=== PATIENT | female | born 1955 | race Caucasian/White ===

== ENCOUNTER 2023-02-17 10:00 | Outpatient (RCR) | payer OTHER, SELFPAY ==
--- NOTE | 2023-01-29 14:16 | PT.OPEX ---
PT [place] [facility] PT [facility] Out[facility] Eval Start: 01/29/23 08:54 Freq: Status: Active Protocol: Document 01/29/23 11:02 NAVYA (Rec: 01/29/23 12:10 NAVYA [id number]) E-signed By Steven Gonzalez PT Physical Therapy Outpatient Evaluation Insurance Information Insurance Name [employer] Medical Diagnosis Left distal bicep strain Treating Diagnosis Left bicep/forearm pain Decreased left bicep strength Referring MD Noriega Subjective Subjective Pt. reports straining her left distal bicep during weight training exercises in October using light dumbbells. She initially had 8/10 pain in upper forearm at bicep insertion, but since seeing Ortho a month ago and resting it, her pain has reduced to a minimal level during normal ADL's. No prior injury or pain in this area. PMH includes; acid reflux and Osteoporosis. She is active with Yoga and exercises regularly. 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 demonstrates; normal bilateral shoulder AROM with 4+/5 strength throughout; normal bilateral elbow, forearm, and wrist AROM : mild rounded shoulders posture; mild weakness of left elbow flexion and forearm supination with minimal pain noted at distal bicep during resisted elbow flexion; mild pain and tightness/tissue restriction noted in left bicep insertion and proximal forearm area. She would benefit from skilled therapy working on progressive tissue elongation and strengthening/ reconditioning back to pre- injury level. Primary Functional Limitations lifting weights, lifting heavier objects, bicep curls. Plan of Care Rehabilitation Potential Excellent Physical Therapy Goals 1. Pt. will be indep. with HEP for self maintenance in 8 weeks. 2. Pt. will demonstrate improved left bicep/forearm strength to normal level in 8 weeks. 3. Pt. will be able to resume light weight lifting training without difficulty in 8 weeks. Coordination/Communication With Referral Source Treatment Plan/Direct Interventions Manual Therapy,Self-Care/Home Management,Therapeutic Exercises Frequency/Duration Weekly to every other week for 8 weeks. Patient Will Be Discharged From Therapy Independent w/HEP, Independently Progressing Evaluation Billing Complexity Low Certification Information Initial Certification Date 01/29/23 Ending Certification Date 04/24/23 Provider Signature Shows Agreement With POC & Medical Necessity Physician Signature & Date Requested Please Sign/Date Here Physician Comment/Change : Physician NPI Number #
== END 2023-06-17 23:59 | disposition home or self-care (01) ==
PROVIDERS: PCP Internal Medicine; Visit Provider Orthopaedic Surgery Sports Medicine
DX: S46.212A Strain of muscle, fascia and tendon of other parts of biceps, left arm, initial encounter (principal); R53.1 Weakness; Z51.89 Encounter for other specified aftercare
CPT/HCPCS: 97110; 97140; 97161

== ENCOUNTER 2023-07-27 08:51 | Outpatient (CLI) | payer MEDICARE, BC, SELFPAY | END 2023-07-27 08:52 | disposition home or self-care (01) | LOC: NFLDREF 11:15 | PROVIDERS: PCP Internal Medicine; Referring Provider Internal Medicine; Visit Provider Internal Medicine | DX: Z00.00 Encounter for general adult medical examination without abnormal findings (principal); Z13.6 Encounter for screening for cardiovascular disorders; Z13.9 Encounter for screening, unspecified; Z13.1 Encounter for screening for diabetes mellitus; M81.0 Age-related osteoporosis without current pathological fracture | CPT/HCPCS: 80061; 82306; 82947 ==

== ENCOUNTER 2023-10-09 10:45 | Outpatient (RCR) | payer MEDICARE, BC, SELFPAY ==
--- NOTE | 2023-08-04 13:26 | PT.OPEX ---
PT [place] Outpatient Eval PT [facility] Outpatient Eval Start: 07/10/23 08:58 Freq: Status: Active Protocol: Document 07/10/23 08:58 AMS (Rec: 07/10/23 12:54 AMS [id number]) E-signed By Rosa Aquino PT Physical Therapy Outpatient Evaluation Insurance Information Recert Due Date 10/03/22 Insurance Name Medicare B Insurance Information/Comments [facility] [employer] Medical Diagnosis Strain of right rotator cuff Treating Diagnosis Right shoulder pain Muscle weakness Referring MD Jeancarlos Noriega Subjective Subjective Yareli returns today with a new problem of right shoulder pain. She states she slipped going down the steps and caught her arm and it pulled behind her at the end of May. Her pain is sharp, intermittent and relieves with rest. The patient has tried ice, Tylenol/oral NSAIDs, rest , activity modification all with minimal and non-lasting relief. The pain is worse with sleeping intermittently. Her pain is of the lateral shoulder. - Dr. Noriega, , confirmed by patient Patient, right-hand dominant, presents with primary complaint of right shoulder pain. This started at the end of May after she slipped going down the steps, caught her arm, and it pulled behind her. She had X-rays done ( below), which were negative for fracture or other concerning bony abnormalities. No other history of injury to the shoulder. She localizes the pain to the lateral shoulder, extending across top of shoulder to base of right- sided neck. Denies numbness/ tingling or neck pain. Describes it as sharp/ intermittent with activity and sometimes has painless clicking. Reaching, lifting, sleeping on her left shoulder, hooking her bra, washing her back/putting on lotion, putting on her jacket, and performing shoulder extension with weight as exercise are aggravating/functional limitations. Her current exercise program is [employer] with [employer] that she finds on YouTube 5x/week, and it varies day to day. Usually, it will be upper body free weights one day, walking one day, lower body on 2 other days, etc. Prior to injury, she was using 3 lb, 5 lb and 8 lb dumbbells for upper body lifting in her classes online. Now, she uses only 1 lb and will sometimes have increased pain the day after doing her modified routine. Easing factors include ibuprofen and ice in beginning. Goals are to return to pain-free sleep and weightlifting routine as well as yoga classes. She has access to the gym now, including yoga classes, but hasn't used it yet due to being unsure of how much to do with her shoulder pain. X-ray dated 06/26/23: Grashey , Y-view and Axillary views of the right shoulder were obtained today from [facility], were ordered and reviewed by me, and show mild superior humeral head migration. Otherwise, no acute fractures, avulsions, or intraosseous pathology. No signs of AVN. -Dr. 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 Preferred Name Yareli Beebe Precautions Treatment Precautions/Contraindications Osteoporosis, bronchiectasis ( treated via medication for lung infection) Objective Other/Pertinent Objective CERVICAL AROM Full and pain-free SHOULDER AROM Flexion: R 170*, L 170 Abduction: R 170*, L 170 Internal Rotation: R T11* L T5 External Rotation (at side): R 70* L 80 * mild pain lateral shoulder SHOULDER PROM Painful end-range flexion, abduction, and IR, muscle guarding NECK/SHOULDER MMT: Shoulder flexion: R 4+/5 L 4+/ 5 Shoulder abduction: R 4+/5 L 4 +/5 Shoulder External Rotation at 0 deg: R 4+/5 L 4+/5 Shoulder Internal Rotation at 0 deg: R 4+/5 L 4+/5 Elbow flexion: R 5/5 L 5/5 Elbow extension R 5/5 L 5/5 SCAPULAR MECHANICS Within normal limits SPECIAL TESTS Shoulder impingement -Neers Test: - -Painful arc: + right for pain between 60 deg and 120 on left, pain with eccentric lowering Labral Tear -Grossman's test: - Rotator Cuff -Drop Arm Test: - -ER Lag: - -Belly Press: - -Subscap Lift Off: + right JOINT MOBILITY/PALPATION No TTP noted along clavicle, AC joint, bicipital groove, lateral deltoid, or posterior shoulder TX: Patient was educated on anatomy, physiology as it relates to current condition and HEP with use of handout/ [employer]. Patient verbalizes understanding and agrees with POC/goals Education: -Discussed ways to modify yoga classes/current lifting routine based on symptoms ( less reps, less weight, less ROM, etc) -Soreness rules with goal of symptoms returning to baseline within 24 hours and that evening Patient was instructed in the following exercises to improve strength, tissue tolerance, and/or mobility with verbal/ tactile cues as needed: Access Code: [email or web address] URL: [email or web address] Date: 07/10/2023 Prepared by: Rosa Aquino Exercises - Standing Shoulder Internal Rotation with Anchored Resistance - 1 x daily - 4 x weekly - 3 sets - 10-12 reps - Prone Shoulder Extension with Dumbbells - 1 x daily - 4 x weekly - 3 sets - 10-12 reps - 1 lb weight - Full Plank - 1 x daily - 4 x weekly - 3 sets - 30 seconds hold - Standing Wall Ball Circles with Mini Somali Ball - 1 x daily - 4 x weekly - 3 sets - 20 reps - each direction hold Functional Test Performed & Score Quick DASH: 27.3/100 = 27.3% Assessment Assessment/Impression Pt is a 67 -year-old female who presents with concerns of subacute right shoulder pain and moderate severity and irritability after having arm pulled behind her 6 weeks ago going downstairs. X-ray done, which was negative for fracture or other bony abnormalities. Signs and symptoms are likely indicating / consistent with right rotator cuff strain. On exam, patient also demonstrates notable objective findings including limited internal rotation AROM/PROM due to pain and muscle guarding, positive painful arc, positive subscapularis lift off, and decreased rotator cuff/ periscapular strength, leading to difficulties with reaching , lifting, sleeping on her left shoulder, hooking her clothing in back, washing her back/putting on lotion, putting on her jacket, and performing shoulder extension with weight as exercise. No signs of gross weakness/ massive rotator cuff tear at this time. PMHx significant for osteoporosis and bronchiectasis. Patient is appropriate for skilled physical therapy services to address the above deficits. Pt was agreeable with plan of care and goals established. Primary Functional Limitations Reaching, lifting, sleeping on her left shoulder, hooking her bra, washing her back/ putting on lotion, putting on her jacket, and performing shoulder extension with weight as exercise Plan of Care Rehabilitation Potential Good Physical Therapy Goals In 2 sessions: Pt will demonstrate consistent HEP compliance to ensure progress in reaching established goals during course of care. In 6-8 sessions: Pt will demonstrate full and pain-free AROM in all directions for improved ability to perform self-care/ dressing with ease. Pt will report <2/10 pain with full weight routine and yoga classes for improved ability to perform recreational activities. Pt will report 15% improvement on Quick DASH for meaningful improvement in symptoms. Coordination/Communication With Referral Source Treatment Plan/Direct Interventions Joint Mobilization,Manual Therapy,Neuromuscular Re-ed, Self-Care/Home Management, Therapeutic Activities, Therapeutic Exercises Frequency/Duration 1x/week for 8 sessions Patient Will Be Discharged From Therapy Completion of LTG(s), Independent w/HEP, Independently Progressing Evaluation Billing Untimed Code Treatment Minutes 25 Complexity Low Certification Information Initial Certification Date 08/04/23 Ending Certification Date 10/03/22 Provider Signature Shows Agreement With POC & Medical Necessity Physician Signature & Date Requested Please Sign/Date Here Physician Comment/Change : Physician NPI Number #
== END 2023-11-02 12:49 | disposition home or self-care (01) ==
PROVIDERS: PCP Internal Medicine; Visit Provider Orthopaedic Surgery Sports Medicine
DX: S46.001A Unspecified injury of muscle(s) and tendon(s) of the rotator cuff of right shoulder, initial encounter (principal); M62.81 Muscle weakness (generalized); M25.511 Pain in right shoulder; Z51.89 Encounter for other specified aftercare
CPT/HCPCS: 97110; 97140; 97161

== ENCOUNTER 2024-09-15 08:09 | Outpatient (CLI) | payer MEDICARE, BC, SELFPAY | END 2024-09-15 08:10 | disposition home or self-care (01) | PROVIDERS: PCP Internal Medicine; Visit Provider Internal Medicine | DX: M81.0 Age-related osteoporosis without current pathological fracture (principal); R63.4 Abnormal weight loss | CPT/HCPCS: 82306; 82607; 82746; 84207 ==